=== PATIENT | female | born 1935 | race Caucasian/White ===

== ENCOUNTER 2018-03-02 18:10 | Inpatient (IN) | payer MEDICARE, OTHER ==
[2018-03-02] VITALS (82 sets, daily range): BP systolic 145; BP diastolic 70; PULSE 72; TEMP 98.2; O2SAT 63–100
[~2018-03-02] VITALS: Ht 160 cm; Wt 65.2 kg
[2018-03-02 18:48] LABS: BASO # 0.1 (0.0-0.2); BASO % 0.7 % (0.0-2.0); EOS # 0.2 (0.0-0.7); EOS % 1.6 % (0-4.0); GRAN # 6.1 (1.4-6.5); GRAN % 63.5 % (42.2-75.2); HEMATOCRIT 45.2 % (37.0-47.0); HEMOGLOBIN 14.8 g/dl (12.5-16.0); LYMPH # 2.6 (1.2-3.4); LYMPH % 26.6 % (20.0-51.0); MEAN CELL VOLUME 106 fl (80.0-100.0); MEAN CORPUSCULAR HEMOGLOBIN 35 pg (27.0-31.0); MEAN CORPUSCULAR HGB CONC 33 g/dl (33.0-37.0); MONO # 0.7 (0.1-0.6); MONO % 7.1 % (1.7-9.3); PLATELET COUNT 407 K/mm3 (130-400); RED BLOOD COUNT 4.27 M/mm3 (4.10-5.30); REDCELL DISTRIBUTION WIDTH-CV 13.9 % (11.5-14.5)
[2018-03-02 19:30] LABS: COLLECTION METHOD CATHETER
[2018-03-02 19:36] LABS: MUCOUS Present /lpf; PH 6 (5-8); SQUAMOUS EPITHELIAL None Seen /hpf; URINE APPEARANCE Clear; URINE BACTERIA None Seen /hpf; URINE BILIRUBIN Negative (NEGATIVE); URINE BLOOD Negative (NEGATIVE); URINE COLOR Yellow; URINE GLUCOSE Negative (NEGATIVE); URINE KETONE Negative (NEGATIVE); URINE LEUKOCYTE ESTERASE Negative (NEGATIVE); URINE NITRATE Negative (NEGATIVE); URINE PROTEIN(semi-quant) Negative (NEGATIVE); URINE RBC 0-2 /hpf; URINE UROBILINOGEN Negative (NEGATIVE)
[2018-03-02 20:45] LABS: ALANINE AMINOTRANSFERASE 19 U/L (9-52); ALBUMIN 3.8 gm/dL (3.5-5.0); ALKALINE PHOSPHATASE 63 U/L (50-136); ANION GAP 5 mmol/L (7-16); AST,SGOT 27 U/L (15-37); BLOOD UREA NITROGEN 16 mg/dL (7-17); C-REACTIVE PROTEIN < 0.5 mg/dL (0.0-0.9); CALCIUM 9.2 mg/dL (8.4-10.2); CARBON DIOXIDE 30 mmol/L (22-30); CHLORIDE 102 mmol/L (98-107); CREATININE, serum 0.99 mg/dL (0.52-1.25); GLUCOSE 98 mg/dL (74-106); POTASSIUM 4.1 mmol/L (3.4-5.0); SODIUM 137 mmol/L (137-145); TOTAL PROTEIN 7.4 gm/dL (6.4-8.2)
[2018-03-02 20:55] LABS: TROPONIN-I < 0.012 ng/mL (0.000-0.034)
[2018-03-02] MEDS ORDERED: OMEGA-3 1000 MG1 CAP PO (21:05)
[2018-03-02] MEDS ORDERED: TENORMIN 5050 MG/TAB PO (21:05)
[2018-03-02] MEDS ORDERED: [UNRECOGNIZED DRUG - OTHER] PO (21:06)
[2018-03-02] MEDS ORDERED: KELP1 TAB PO (21:07)
[2018-03-02] MEDS ORDERED: TRIPLE ANTIBIOT1 O19 TP (21:07)
[2018-03-02] MEDS ORDERED: PROBIOTIC ACID1 EAC3 PO (21:07)
[2018-03-02] MEDS ORDERED: PANTOTHENIC ACID PO (21:08)
[2018-03-02] MEDS ORDERED: NATURAL POTASS595 MG PO (21:09)
[2018-03-02] MEDS ORDERED: HYDROXYURE500 MG/CAP PO ×2 (21:12→22:45)
[2018-03-02] MEDS ORDERED: PRINIVIL20 MG PO (21:13)
[2018-03-02] MEDS ORDERED: VITAMIN B12 681 TAB PO (21:14)
[2018-03-02] MEDS ORDERED: BIOTIN10000 MC1 PO (21:14)
[2018-03-02] MEDS ORDERED: VITAMIN FLUSH-F1 CAP PO (21:14)
[2018-03-02] MEDS ORDERED: PHARMASSURE ZIN50 MG PO (21:14)
[2018-03-02 23:40] LABS: MAGNESIUM 1.8 mg/dL (1.6-2.3); PHOSPHOROUS 3.8 mg/dL (2.5-4.5)
[2018-03-03] VITALS (360 sets, daily range): BP systolic 94–163; BP diastolic 48–98; PULSE 66–79; TEMP 97.7–98.7; O2SAT 64–99
[2018-03-03 00:11] LABS: TSH w REFLEX 2.98 uIU/mL (0.465-4.680)
--- NOTE | 2018-03-03 04:30 | NUR ---
RECEIVED REPORT FROM EVELIO GRAVES. PT SITTING UP IN BED. ALITTLE ANXIOUS BUT NO PAIN. WANTED TO SIT UP ON SIDE OF BED. ASSISTED. REPOSITIONED PT FOR COMFORT. DENIED FURTHER NEEDS.
[2018-03-03 05:58] LABS: BASO # 0.1 (0.0-0.2); BASO % 0.8 % (0.0-2.0); EOS # 0.2 (0.0-0.7); EOS % 1.7 % (0-4.0); GRAN # 5.5 (1.4-6.5); GRAN % 63.5 % (42.2-75.2); HEMATOCRIT 42.7 % (37.0-47.0); LYMPH # 2.2 (1.2-3.4); LYMPH % 25.5 % (20.0-51.0); MEAN CELL VOLUME 107 fl (80.0-100.0); MEAN CORPUSCULAR HEMOGLOBIN 35 pg (27.0-31.0); MEAN CORPUSCULAR HGB CONC 33 g/dl (33.0-37.0); MONO # 0.7 (0.1-0.6); MONO % 7.9 % (1.7-9.3); PLATELET COUNT 378 K/mm3 (130-400); RED BLOOD COUNT 3.98 M/mm3 (4.10-5.30)
[2018-03-03 06:04] LABS: ALBUMIN 3.6 gm/dL (3.5-5.0); BILIRUBIN,TOTAL 0.8 mg/dL (0.0-1.0); CALCIUM 9.1 mg/dL (8.4-10.2); CHOLESTEROL RISK RATIO 4.7; CREATININE, serum 1.11 mg/dL (0.52-1.25); POTASSIUM 3.9 mmol/L (3.4-5.0); TOTAL PROTEIN 6.9 gm/dL (6.4-8.2)
--- NOTE | 2018-03-03 07:05 | NUR ---
Bedside shift report received from Darian Luis. PT in bed resting with daughter at bedside. C/o headache and nausea, will order some toast and sprite per request and get am BP meds also per request. Will continue to monitor.
--- NOTE | 2018-03-03 07:07 | NUR ---
Report given to Itzel GRAVES.
--- NOTE | 2018-03-03 07:55 | NUR ---
Pt c/o pain at 5/10 to head, nausea is a little better. Sitting up in bed and eating ordered food. Neuro checks negative for any weakness or abnormalities, pt able to answer all orientation questions appropriately. VSS. Assessment charted, will continue to monitor.
--- NOTE | 2018-03-03 09:39 | NUR ---
Dr. Graham to see pt at this time. Orders received, will continue to monitor.
--- NOTE | 2018-03-03 11:04 | NUR ---
Report given to Cookie RN on surgical, will transport pt up to floor via w/c shortly.
--- NOTE | 2018-03-03 11:32 | NUR ---
Pt delivered to floor by w/c with belongings and son. Surgical floor to resume care.
--- NOTE | 2018-03-03 11:35 | NUR ---
Alert. Speech clear. States has a dull headache. Family at bedside.
--- NOTE | 2018-03-03 18:00 | NUR ---
Has been given Tylenol for c/o dull headache. Ambulatory in room with walker and standby assist. Steady on feet. Neurochecks stable. Bllod pressure improved.
--- NOTE | 2018-03-03 20:15 | NUR ---
Pt. laying in bed. Pt. is A&OX3, assessment complete. INT to rt. wrist patent. Pt. denies pain or other needs, call light within reach.
[2018-03-04 05:01] VITALS: BP 144/84; PULSE 76; TEMP 98.2
--- NOTE | 2018-03-04 05:58 | NUR ---
Pt. slept well through the night. Pt. remains A&OX3. INT to rt. wrist remains patent. Pt. denies pain or other needs. Call light within reach.
[2018-03-04 08:07] VITALS: BP 151/68; PULSE 66; TEMP 97.6
[2018-03-04 12:01] VITALS: BP 146/61; PULSE 62; TEMP 97.4
[2018-03-04 15:57] VITALS: BP 125/67; PULSE 64; TEMP 97.5
--- NOTE | 2018-03-04 15:57 | NUR ---
LA met with patient and her son to discuss discharge planning. Patient lives outside of [facility] alone and reports she does fine with her ADLs and does not feel she needs any help. She will be staying with her son for a few days prior to returning home. Patients PCP is Dr Henry Laurent and she obtains her medications from [facility] in [place]. She uses a cane for ambulation and has a FWW at home. Her son reports they are getting her a 4WW with seat before taking her home. Patient plans on dc tomorrow and does not have any other dc needs.
[2018-03-04 19:25] VITALS: BP 153/72; PULSE 69; TEMP 98.5
--- NOTE | 2018-03-04 19:45 | NUR ---
Patient resting with HOB elevated. Denies pain. A&O. Respiations even and unlabored. Fine crackles ausculated in RLL. All other lung morton clear. BS positive. Heart rhythm regular. Pedal pulses 1+. RW INT has bloody drainage. Flushes appropriately. Neurological assessment intact. Will continue to monitor.
--- NOTE | 2018-03-04 21:50 | NUR ---
Patient ambulates to bathroom with standby assist and walker. Gait is steady. RW INT cleaned of bloody drainage and recovered with new tegaderm.
[2018-03-04 23:44] VITALS: BP 123/57; PULSE 70; TEMP 98.2
[2018-03-05 03:24] VITALS: BP 130/74; PULSE 63; TEMP 98.2
--- NOTE | 2018-03-05 06:34 | NUR ---
Pt rested throughout the night without any complaints. No changes from previous assessment. No neurological deficits noted.
[2018-03-05 07:41] VITALS: BP 154/92; PULSE 71; TEMP 97.8
--- NOTE | 2018-03-05 08:00 | NUR ---
PATIENT IS A&O. VSS. DENIES PAIN. PATIENT HOPING TO DISCHARGE HOME TODAY. HEAD TO TOE ASSESSMENT WNL. AM MEDS GIVEN. NO OTHER NEEDS. CALL LIGHT IN REACH.
[2018-03-05] MEDS ORDERED: PRINIVIL20 MG PO (09:14)
[2018-03-05] MEDS ORDERED: TENORMIN 5050 MG/TAB PO (09:14)
--- NOTE | 2018-03-05 11:05 | NUR ---
PATIENT DISCHARGING HOME VIA WHEELCHAIR TO PERSONAL VEHICLE WITH SON. GAVE DISCHARGE INSTRUCTIONS, PRESCRIPTIONS & PATIENT WILL CALL TO SCHEDULED APTS DUE TO HOLIDAY. ANSWERED ALL QUESTIONS/CONCERNS. IV AND TELE DC'D. PATIENT DRESSED AND READY FOR DISCHARGE.
== END 2018-03-05 11:05 | disposition home or self-care (01) | DRG 78 ==
LOC: COL.ER 18:10 → ICU 20:59 → SURG 03-03 10:04 → ICU 03-03 10:04 → SURG 03-03 11:33 → ICU 03-03 11:33 → SURG 03-03 11:33
PROVIDERS: Emergency Medicine; Nurse Practitioner Family; ADMIT Internal Medicine
DX: I67.4 Hypertensive encephalopathy (principal); C95.10 Chronic leukemia of unspecified cell type not having achieved remission; R47.81 Slurred speech; Z66 Do not resuscitate; I10 Essential (primary) hypertension; T44.7X6A Underdosing of beta-adrenoreceptor antagonists, initial encounter; Z91.138 Patient's unintentional underdosing of medication regimen for other reason; E78.5 Hyperlipidemia, unspecified; D75.1 Secondary polycythemia
CPT/HCPCS: OP; 99223-AI; 99232-AI; 99239; A9585; G8978-GP; G8979-GP; J1650